=== PATIENT | male | born 1980 | race Caucasian/White ===

== ENCOUNTER 2017-04-02 07:42 | Emergency (ER) | payer SELFPAY ==
--- NOTE | 2017-04-02 08:26 | DR.GENAD ---
HPI - PCP Primary Care Physician: NFRick - HPI Comment HPI Comment: PATIENT TOLD NURSE HE IS OUT OF SEROQUEL. NO FEVER NOTED. HAVE GIVEN URINE FOR ANALYSIS AND HAVE LET US DRAW BLOOD FOR LAB TEST. - Complaint/Symptoms Chief Complaint Doctors Comments: PATIENT OUT OF MENTAL HEALTH MED. WALKING FOR 2 WEEKS SINCE HURRICANE SUZANNE STARTED. HE IS NOT ANSWERING QUESTIONS. Chief Complaint:: PATIENT STATED HE HAS BEEN WALKING FOR 2 WEEKS AND IS OUT OF MENTAL HEALTH MEDS. - Nurses notes reviewed Nurses Notes Review: Yes - Source History Provided: Patient - Mode of Arrival Mode of Arrival: Ambulatory - Timing Onset of Chief Complaint: 03/29/17 Came on: Gradually - Duration Duration: Constant Duration: Days - Severity Severity: Moderate <MARIA DEL ROSARIO EVANS - Last Filed: 04/03/17 03:55> PMH - PMH Past Medical History: Yes Past Medical History: Anxiety, Depression, Schizophrenia Past Medical History Comment: BI-POLAR,PTSD Past Surgical History: No Surgical History: - Family History History of Family Medical Conditions: No - Social History Does patient currently use any type of tobacco product: Yes Have you used tobacco products in the last 12 months: Yes Type of Tobacco Use: Cigarettes Does any household member use tobacco: No Alcohol Use: None Do you use any recreational Drugs:: No Lives With: Alone Lives Where: Home - infectious screening In the last 2 months have you had wt loss of >10#?: NO Have you had fever, night sweats or hemotysis?: No Have you traveled outside the country in the last 6 months?: No Isolation: Standard <MARIA DEL ROSARIO EVANS - Last Filed: 04/03/17 03:55> ROS - Review of Systems Constitutional: No Symptoms Reported Eyes: No Symptoms Reported ENTM: No Symptoms Reported Respiratoy: No Symptoms Reported Cardiovascular: No Symptoms Reported Gastrointestinal/Abdominal: No Symptoms Reported Genitourinary: No Symptoms Reported Neurological: No Symptoms Reported Musculoskeletal: No Symptoms Reported Integumentary: No Symptoms Reported Hematologic/Lymphatic: No Symptoms Reported Endocrine: No Symptoms Reported Psychiatric: Other (MENTAL HEALTH ILLNESS) All Other Systems: Reviewed and Negative <MARIA DEL ROSARIO EVANS - Last Filed: 04/03/17 03:55> PE - General Limitations: No Limitations General Appearance: Alert - Head Head Exam: Normal Inspection - Eyes Eye exam: Normal Appearance - ENT ENT Exam: Normal External Ear Exam External Ear Exam: Normal External Inspection TM/Canal Exam: Bilateral Normal Nose Exam: Normal Nose Exam Mouth Exam: Normal Inspection Throat Exam: Normal Inspection - Neck Neck Exam: Trachea Midline - Chest Chest Inspection: Symmetric Chest Wall Rise - Respiratory Respiratory Exam: Normal Lung Sounds Bilat Respiratory Exam: Bilateral Clear to Auscultation - Cardiovascular Cardiovascular Exam: Regular Rate, Normal Rhythm, Normal Heart Sounds - Abdominal Exam Abdominal Exam: Normal Bowel Sounds, Soft. negative: Tenderness - Extremities Extremities Exam: Normal Inspection - Back Back Exam: Normal Inspection - Neurologic Neurological Exam: Alert, Oriented X3, CN II-XII Intact, Normal Gait, Reflexes Normal. negative: Motor Sensory Deficit - Psychiatric Psychiatric Exam: Flat Affect - Skin Skin Exam: Normal Color <MARIA DEL ROSARIO EVANS - Last Filed: 04/03/17 03:55> - Vital Signs Vitals: Temperature 98.1 F Pulse Rate [Left Brachial] 58 Pulse Rate [Right Radial] 73 Pulse Rate 82 Respiratory Rate 16 Blood Pressure [Left Arm] 118/69 Blood Pressure 138/92 O2 Sat by Pulse Oximetry 95 MDM - Differential Diagnosis Differential Diagnosis: MENTAL RIVKA CRISIS <MARIA DEL ROSARIO EVANS - Last Filed: 04/03/17 03:55> Course - Treatment Treatment: SEE ORDER - Consultation Consultation Comments: MENTAL HEALTH CONSULT. PATIENT IS MEDICALLY CLEAR. - Education/Counseling Education/Counseling: Patient, Education <MARIA DEL ROSARIO EVANS - Last Filed: 04/03/17 03:55> - Treatment Treatment: Patient states that she was seen at [facility] in [facility] , F [phone]. There was no documentation of patient being seen there. They gave me another phone # for [facility] [phone] but there was no documentation of patient being seen there.--Patient is non homocidal and non suicidal. <SKYE LEWIS - Last Filed: 04/03/17 09:59> ROR - Labs Reviewed Laboratory Results Reviewed?: Yes Result Diagrams: 04/02/17 08:25 04/02/17 08:25 - EKG Rhythm: NSR (EKG NOTED) <MARIA DEL ROSARIO EVANS - Last Filed: 04/03/17 03:55> - Labs Reviewed Result Diagrams: 04/02/17 08:25 04/02/17 08:25 <SKYE LEWIS - Last Filed: 04/03/17 09:59> - Labs Reviewed Laboratory: WBC 5.0 X10^3/uL (3.6-10.0) 04/02/17 08:25 RBC 4.69 X10^6/uL (4.7-6.0) L 04/02/17 08:25 Hgb 14.7 g/dL (13.5-18.0) 04/02/17 08:25 Hct 42.4 % (42.0-54.0) 04/02/17 08:25 MCV 90.4 fL (80.0-100.0) 04/02/17 08:25 MCH 31.4 pg (27.0-34.0) 04/02/17 08:25 MCHC 34.7 g/dL (33.0-35.0) 04/02/17 08:25 RDW 12.9 % (11.6-16.5) 04/02/17 08:25 Plt Count 160 X10^3/uL (150.0-450.0) 04/02/17 08:25 MPV 9.9 fL (7.4-11.0) 04/02/17 08:25 Neut % 61.1 % (42.0-75.0) 04/02/17 08:25 Lymph % 28.1 % (21.0-51.0) 04/02/17 08:25 [place] % 8.0 % (0.0-13.0) 04/02/17 08:25 Eos % 2.2 % (0.9-2.9) 04/02/17 08:25 Baso % 0.6 % (0.2-1.0) 04/02/17 08:25 Neut # 3.1 x10^3/uL (2.2-4.8) 04/02/17 08:25 Lymph # 1.4 X10^3/uL (1.3-2.9) 04/02/17 08:25 [place] # 0.4 x10^3/uL (0.3-0.8) 04/02/17 08:25 Eos # 0.1 x10^3/uL (0.0-0.2) 04/02/17 08:25 Baso # 0.0 X10^3/uL (0.0-0.1) 04/02/17 08:25 Absolute Nucleated RBC 0.0 /100WBC 04/02/17 08:25 Sodium 137 mmol/L (136-145) 04/02/17 08:25 Corrected Sodium TNP 04/02/17 08:25 Potassium 3.9 mmol/L (3.5-5.1) 04/02/17 08:25 Chloride 104 mmol/L (98-107) 04/02/17 08:25 Carbon Dioxide 27.6 mmol/L (21-32) 04/02/17 08:25 BUN 14 mg/dL (7-18) 04/02/17 08:25 Creatinine 0.95 mg/dL (0.70-1.30) 04/02/17 08:25 Est GFR (MDRD) Af Amer > 60 (>60) 04/02/17 08:25 Est GFR (MDRD) Non-Af > 60 (>60) 04/02/17 08:25 Glucose 97 mg/dL (65-99) 04/02/17 08:25 Calcium 8.7 mg/dL (8.5-10.1) 04/02/17 08:25 Corrected Calcium TNP 04/02/17 08:25 Total Bilirubin 0.70 mg/dL (0.2-1.0) 04/02/17 08:25 AST 23 Units/L (15-37) 04/02/17 08:25 ALT 50 Units/L (12-78) 04/02/17 08:25 Alkaline Phosphatase 65 Units/L (46-116) 04/02/17 08:25 Total Protein 7.1 g/dL (6.4-8.2) 04/02/17 08:25 Albumin 3.4 g/dL (3.4-5.0) 04/02/17 08:25 Globulin 3.7 g/dL (2.5-4.5) 04/02/17 08:25 Albumin/Globulin Ratio 0.9 Ratio (1.1-2.1) L 04/02/17 08:25 Specimen Type Clean catch urine 04/02/17 08:27 Urine Color Yellow (YELLOW) 04/02/17 08:27 Urine Appearance Slightly hazy (CLEAR) 04/02/17 08:27 Urine pH 6.0 (5.0 - 8.0) 04/02/17 08:27 Ur Specific [place] 1.030 (1.000-1.030) 04/02/17 08:27 Urine Protein 2+ (NEGATIVE) 04/02/17 08:27 Urine Glucose (UA) Negative (NEGATIVE) 04/02/17 08:27 Urine Ketones 1+ (NEGATIVE) 04/02/17 08:27 Urine Occult Blood 2+ (NEGATIVE) 04/02/17 08:27 Urine Nitrite Positive (NEGATIVE) 04/02/17 08:27 Urine Bilirubin 1+ (NEGATIVE) 04/02/17 08:27 Urine Urobilinogen 2+ (NORMAL) 04/02/17 08:27 Ur Leukocyte Esterase 1+ (NEGATIVE) 04/02/17 08:27 Urine RBC 01 - 03 /HPF (NEGATIVE) 04/02/17 08:27 Urine WBC 01 - 05 /HPF (NEGATIVE) 04/02/17 08:27 Ur Squamous Epith Cells Rare /HPF (NEGATIVE) 04/02/17 08:27 Ur Renal Epithelial Cell Rare /HPF (NEGATIVE) 04/02/17 08:27 Calcium Oxalate Crystal Few /HPF (NEGATIVE) 04/02/17 08:27 Amorphous Sediment 3+ /HPF (NEGATIVE) 04/02/17 08:27 Urine Bacteria Trace /HPF (NEGATIVE) 04/02/17 08:27 Hyaline Casts Rare /LPF (NEGATIVE) 04/02/17 08:27 Urine Mucus Moderate /HPF (NEGATIVE) 04/02/17 08:27 Ur Culture Indicated? No/not indicated 04/02/17 08:27 Salicylates < 2.8 mg/dL (2.8-20) L 04/02/17 08:25 Urine Opiates Screen Negative (NEG=<300) 04/02/17 08:27 Urine Methadone Screen Negative (NEG=<300) 04/02/17 08:27 Acetaminophen < 10.0 ug/mL (10-30) L 04/02/17 08:25 Ur Barbiturates Screen Negative (NEG=<200) 04/02/17 08:27 Ur Phencyclidine Scrn Negative (NEG=<25) 04/02/17 08:27 Ur Amphetamines Screen Negative (NEG=<1000) 04/02/17 08:27 U Benzodiazepines Scrn Negative (NEG=<200) 04/02/17 08:27 Urine Cocaine Screen Negative (NEG=<300) 04/02/17 08:27 U Marijuana (THC) Screen Positive (NEG=<50) A 04/02/17 08:27 Ethyl Alcohol mg/dL < 3.0 mg/dL (0-19.9) 04/02/17 08:25 <MARIA DEL ROSARIO EVANS - Last Filed: 04/03/17 03:55> <SKYE LEWIS - Last Filed: 04/03/17 09:59> - Diagnosis Discharge Problem: UTI (urinary tract infection) Qualifiers: Urinary tract infection type: acute cystitis Hematuria presence: with hematuria Qualified Code(s): N30.01 - Acute cystitis with hematuria - Discharge Plan Condition: Stable - Follow ups/Referrals Follow ups/Referrals: NFD,None [Primary Care Provider] - 3 days - Instructions
[2017-04-02 08:42] LABS: BILIRUBIN,URINE 1+ (NEGATIVE); BLOOD/HEMOGLOBIN,URINE 2+ (NEGATIVE); GLUCOSE, URINE NEGATIVE (NEGATIVE); KETONES,URINE 1+ (NEGATIVE); LEUKOCYTE ESTERASE ,URINE 1+ (NEGATIVE); NITRITES,URINE POSITIVE (NEGATIVE); PROTEIN,URINE 2+ (NEGATIVE); UROBILINOGEN,URINE 2+ (NORMAL)
[2017-04-02 08:48] LABS: SALICYLATE < 2.8 mg/dL (2.8-20)
[2017-04-02 08:50] LABS: ALANINE AMINOTRANSFERASE 50 Units/L (12-78); ALBUMIN 3.4 g/dL (3.4-5.0); ALKALINE PHOSPHATASE 65 Units/L (46-116); ASPARTATE AMINO TRANSFERASE 23 Units/L (15-37); BLOOD UREA NITROGEN 14 mg/dL (7-18); CALCIUM 8.7 mg/dL (8.5-10.1); CARBON DIOXIDE 27.6 mmol/L (21-32); CHLORIDE 104 mmol/L (98-107); CREATININE 0.95 mg/dL (0.70-1.30); SODIUM 137 mmol/L (136-145); TOTAL PROTEIN 7.1 g/dL (6.4-8.2); eGFR BLACK RACES > 60 (>60); eGFR NON BLACK RACES > 60 (>60)
[2017-04-02 08:57] LABS: BASOPHILS % (AUTO) 0.6 % (0.2-1.0); EOSINOPHILS # (AUTO) 0.1 x10^3/uL (0.0-0.2); EOSINOPHILS % (AUTO) 2.2 % (0.9-2.9); HEMATOCRIT 42.4 % (42.0-54.0); HEMOGLOBIN 14.7 g/dL (13.5-18.0); LYMPHOCYTES # (AUTO) 1.4 X10^3/uL (1.3-2.9); LYMPHOCYTES % (AUTO) 28.1 % (21.0-51.0); MEAN CORPUSCULAR HEMOGLOBIN 31.4 pg (27.0-34.0); MEAN CORPUSCULAR HGB CONC 34.7 g/dL (33.0-35.0); MEAN CORPUSCULAR VOLUME 90.4 fL (80.0-100.0); MEAN PLATELET VOLUME 9.9 fL (7.4-11.0); MONOCYTES # (AUTO) 0.4 x10^3/uL (0.3-0.8); NEUTROPHILS # (AUTO) 3.1 x10^3/uL (2.2-4.8); NEUTROPHILS % (AUTO) 61.1 % (42.0-75.0); PLATELET COUNT 160 X10^3/uL (150.0-450.0); RED BLOOD COUNT 4.69 X10^6/uL (4.7-6.0); RED CELL DISTRIBUTION WIDTH 12.9 % (11.6-16.5)
[2017-04-02 09:04] LABS: APPEARANCE,URINE SLIGHTLY HAZY (CLEAR); COLOR,URINE YELLOW (YELLOW)
[2017-04-02 09:06] LABS: ACETAMINOPHEN < 10.0 ug/mL (10-30)
[2017-04-02 09:10] LABS: BLOOD ALCOHOL < 3.0 mg/dL (0-19.9)
[2017-04-02 09:15] LABS: AMORPHOUS SEDIMENT,UR 3+ /HPF (NEGATIVE); BACTERIA,URINE TRACE /HPF (NEGATIVE); CALCIUM OXALATE CRYSTALS,UR FEW /HPF (NEGATIVE); HYALINE CASTS, URINE RARE /LPF (NEGATIVE); MUCUS,URINE MODERATE /HPF (NEGATIVE); RENAL EPITHELIAL CELLS,URINE RARE /HPF (NEGATIVE); SQUAMOUS EPITHELIAL CELL,UR RARE /HPF (NEGATIVE)
[2017-04-02 18:17] VITALS: BMI 19.0
[2017-04-02 20:50] VITALS: BP 118/69
[2017-04-03] MEDS ORDERED: BACTRIM DS TAB PO ONE ×2 (10:01→10:04)
== END 2017-04-03 10:30 | disposition home or self-care (01) ==
LOC: ER 07:52
DX: N30.01 Acute cystitis with hematuria (principal)
CPT/HCPCS: 36415; 80053; 80307; 80320; 81001; 85025; 93005; 93010; 99282; G0434; G6038; G6039; G6040